=== PATIENT | male | born 1950 | race Hispanic/Latino ===

== ENCOUNTER 2017-02-13 08:40 | Day surgery (SDC) | payer OTHER, MEDICARE ==
[~2017-02-13 08:40] MED LIST: ANCEF/STERILE WATER 2 GM/20 ML 2 GM/20 ML SYRINGE IV NR; NACL 0.9% 1000 ML 1,000 ML IV SCH
[2017-02-13] MEDS ORDERED: NACL 0.9% 500 ML 500 ML IV SCH (09:00)
[2017-02-13 09:21] LABS: Hematocrit 37.6 % (35.5-45.6); Hemoglobin 12.3 gm/dl (11.8-15.2); Mean Corpuscular HGB Conc 33 % (32-34); Mean Corpuscular Hemoglobin 29 pg (28-32); Mean Corpuscular Volume 88 fl (84-94); Platelet Count 202 K/mm3 (140-440); Red Cell Distribution Width 15.1 % (13.2-15.2); White Blood Count 4.5 K/mm3 (4.5-11.0)
[2017-02-13 09:31] LABS: Anion Gap 15 mmol/L; BUN/Creatinine Ratio 23.63; Blood Urea Nitrogen 26 mg/dL (9-20); Calcium 9.3 mg/dL (8.4-10.2); Carbon Dioxide 24 mmol/L (22-30); Chloride 103.9 mmol/L (98-107); Glucose 96 mg/dL (75-100); Potassium 5.2 mmol/L (3.6-5.0); Sodium 138 mmol/L (137-145)
[2017-02-13 09:35] LABS: INR 1.09 (0.87-1.13)
[2017-02-13 09:36] LABS: Partial Thromboplastin Time 27.3 Sec. (24.2-36.6)
[2017-02-13] MEDS ORDERED: HEPARIN 10,000 UNITS/10 ML ONE (11:18)
[2017-02-13] MEDS ORDERED: HEPARIN/NS 5000 UNIT/500ML(CATH LAB) 1,000 ML IR ONE (11:18)
[2017-02-13] MEDS ORDERED: ANCEF/STERILE WATER 2 GM/20 ML 2 GM/20 ML SYRINGE IV ONE (11:19)
[2017-02-13] MEDS ORDERED: VERSED ONE (11:19)
[2017-02-13] MEDS ORDERED: SUBLIMAZE ONE (11:19)
[2017-02-13] MEDS ORDERED: XYLOCAINE 2% INFILTRATI ONE (11:19)
--- NOTE | 2017-02-13 12:53 | Short Stay Summary ---
Short Stay Documentation Date of service: 02/13/17 - History Principal diagnosis: RLE DVT H&P: obtained from office - Allergies and Medications Current Medications: Allergies ALL STATINS DRUGS Adverse Reaction (Uncoded 02/13/17 08:41) MUSCLE PAIN/ WEAKNESS Home Medications Medication Instructions Recorded Confirmed Last Taken Type Apixaban [Eliquis] 5 mg PO BID 02/13/17 02/13/17 02/13/17 History Clindamycin HCl [Clindamycin HCl] 300 mg PO TID 02/13/17 02/13/17 02/13/17 History Lisinopril [Lisinopril] 5 mg PO DAILY 02/13/17 02/13/17 02/13/17 History Metformin HCl [Metformin HCl ER] 750 mg PO DAILY 02/13/17 02/13/17 02/11/17 History Sulfamethoxazole/Trimethoprim 1 tab PO DAILY 02/13/17 02/13/17 02/12/17 History [Sulfamethoxazole-Tmp Ds Tablet] Active Medications Cefazolin Sodium (Ancef/Sterile Water 2 Gm/20 Ml) 2 gm in 20 mls @ 80 mls/hr IV PREOP NR PRN Reason: Protocol Stop: 02/13/17 23:59 Last Admin: 02/13/17 11:30 Dose: 20 mls Sodium Chloride (Nacl 0.9% 500 Ml) 500 mls @ 50 mls/hr IV DIRECT GEORGES Last Admin: 02/13/17 09:41 Dose: 50 mls/hr - Brief post op/procedure progress note Date of procedure: 02/13/17 Pre-op diagnosis: RLE DVT Post-op diagnosis: same Procedure: RLE thrombectomy and venoplasty/stent Anesthesia: local Surgeon: JI MUNGUIA Estimated blood loss: other (350 ml in Penumbra aspiration catheter) Pathology: none Condition: stable - Disposition Condition at discharge: Good Disposition: DISCHARGED TO HOME OR SELFCARE Short Stay Discharge Plan Activity: advance as tolerated Weight Bearing Status: Weight Bear as Tolerated Diet: regular Wound: keep clean and dry, per your surgeon's advice Follow up with: JI MUNGUIA MD [Staff Physician] - 14 Days
--- NOTE | 2017-02-13 13:00 | Operative Report ---
Operative Report Operative Report: EXAM: EXAM: RIGHT LOWER EXTREMITY VENOGRAM, RIGHT LOWER EXTREMITY THROMBECTOMY, VENOPLASTY AND STENT PLACEMENT CLINICAL INDICATION: PATIENT WITH RIGHT FEMORAL VEIN AND POPLITEAL VEIN DVT DATE: 02/13/2017 PROCEDURE: Following an explanation of the risks, benefits and alternatives; written informed consent was obtained. The patient was brought to the angiographic suite and placed in prone position on the examination table. Initial ultrasound evaluation of his right popliteal fossa demonstrated a thrombosed popliteal vein. There is extension of the thrombus within the distal calf veins as well. Thrombus extends up the femoral vein. The patient' s right popliteal fossa and lower leg were prepped and draped in the usual sterile fashion. 1% lidocaine was used for anesthesia. Under ultrasound guidance, the right posterior tibial vein was cannulated with a 7 cm 18-gauge needle. A 0.035 guidewire was advanced centrally under fluoroscopy. The needle was removed and a 5 Wallisian sheath placed over the guidewire. There was minimal difficulty in manipulating the guidewire through the occluded thrombus and a 4 Wallisian vertebral catheter was placed over the guidewire and together the the vertebral catheter and guidewire were advanced into the IVC under fluoroscopy. Venography performed to the catheter in the IVC and external iliac veins demonstrated a widely patent external iliac vein and common iliac vein. Pullback venography was then performed which demonstrated a widely patent right common femoral vein and proximal right superficial femoral vein. There is complete occlusion of the superficial femoral vein at its midportion and all veins distally are occluded. Aspiration thrombectomy was performed with a 8 Wallisian penumbra indigo aspiration catheter from distal to proximal. A significant stenosis is present within the mid superficial femoral vein which limits inflow and an antegrade fashion. Angioplasty of this inflow lesion was first performed using a 7 mm balloon. There is minimal reduction of the initially 90% stenosis to 70% a decision was made to place a stent across this lesion. In order to completely exclude the lesion, to 10 mm x 60 mm stents were placed across the lesion in the superficial femoral vein. The stents were seated using a 9 mm x 60 mm balloon insufflated nominal atmospheres of multiple locations. The thrombus in the mid and distal portion of the superficial femoral vein was noted to be chronic in nature and additional mechanical thrombectomy was performed using a still cleaner device. Aspiration thrombus to me was performed multiple times in the distal and mid superficial femoral vein. Following aspiration thrombus ectomy, venoplasty was performed using the 9 mm x 60 mm balloon and the distal superficial femoral vein to the sheath insertion site. Post intervention venography demonstrated scattered areas of chronic thrombus along the vessel al with a patent channel and flow. At this point, the catheters, guidewires and sheaths were removed and hemostasis achieved using manual compression. A compression dressing was then placed. The patient tolerated the procedure well. There were no immediate post procedure complications. Conscious sedation was performed under the guidance of radiologic nursing. Continuous cardiopulmonary monitoring was utilized. IMPRESSION: 1) Right lower extremity venogram demonstrating acute on chronic thrombus involving the mid and distal superficial femoral vein and popliteal vein. The thrombus does extend into the calf veins. 2) 90% stenosis involving the mid superficial femoral vein. 3) Venoplasty and stent placement across the 90% lesion with residual less than 10% stenosis. 4) Mechanical thrombectomy using an 8F Hublishedumbra aspiration catheter as well as an [employer] still cleaner device.
[2017-02-13 14:08] VITALS: BP 118/55
--- NOTE | 2017-02-15 08:08 | Vascular Lab Report ---
MISCELLANEOUS VESSEL IDENTIFICATION: COMMENTS ON THE SCAN: The right popliteal vein was identified and under real-time ultrasound guidance was cannulated. IMPRESSION: Successful ultrasound guided vein cannulation.
== END 2017-02-13 14:20 | disposition home or self-care (01) ==
LOC: OPU 08:40
PROVIDERS: ATTEND Radiology Diagnostic Radiology
DX: I82.5Z1 Chronic embolism and thrombosis of unspecified deep veins of right distal lower extremity (principal); I10 Essential (primary) hypertension; E11.9 Type 2 diabetes mellitus without complications; E78.5 Hyperlipidemia, unspecified; E03.9 Hypothyroidism, unspecified; Z87.891 Personal history of nicotine dependence
CPT/HCPCS: 36012; 36415; 37187; 37238; 75820; 76937; 80048; 85027; 85610; 85730; C1725; C1751; C1757; C1769; C1876; C1894; J0690; J1644; J2250; J3010; J7040; Q9967